=== PATIENT | male | born 1970 | race American Indian/Alaskan Native ===

== ENCOUNTER 2021-01-03 08:00 | Outpatient (CLI) | payer OTHER | END 2021-01-03 08:30 | disposition home or self-care (01) | LOC: EDBD 08:00 → PPH VACUNA 08:00 | DX: Z23 Encounter for immunization (principal) ==

== ENCOUNTER 2021-02-02 08:00 | Outpatient (CLI) | payer OTHER | END 2021-02-02 08:30 | disposition home or self-care (01) | LOC: PPH VACUNA 08:00 | DX: Z23 Encounter for immunization (principal) ==